=== PATIENT | male | born 1955 | race Caucasian/White ===

== ENCOUNTER 2017-12-05 06:12 | Emergency (ER) | payer BC ==
[~2017-12-05] VITALS: Ht 188 cm; Wt 75.0 kg
[2017-12-05 06:20] VITALS: TEMP 36.5; Ht 188 cm; Wt 75.0 kg
[2017-12-05] MEDS ORDERED: FAMOTIDINE 20 MG TAB PO STA (06:31)
[2017-12-05] MEDS ORDERED: SUCRALFATE 1 GM TAB PO STA (06:31)
[2017-12-05] MEDS ORDERED: GI COCKTAIL PO STA (06:31)
[2017-12-05] MEDS ORDERED: ALBUTEROL 0.083% NEBU SOLN 3 ML VIAL INH STA (06:33)
[2017-12-05] MEDS ORDERED: ALUMINUM/MAGNESIUM SUSP 30 ML UDC ONE (06:37)
[2017-12-05] MEDS ORDERED: LIDOCAINE HCL 2% VISC SOLN 20 ML UDC ONE (06:37)
[2017-12-05 06:41] LABS: BASO % 0.1 %; BASO ABS # 0.01 K/uL (0-0.2); EOS % 0.9 %; EOS ABS # 0.09 K/uL (0-0.5); HEMATOCRIT 43.4 % (42-52); HEMOGLOBIN 15.3 g/dL (14.0-18.0); IG# 0.02 K/uL (0.00-0.02); LYMPH % 10.3 %; LYMPH ABS # 1.09 K/uL (1.2-3.4); MEAN CELL VOLUME 86.8 fL (80-100); MEAN CORPUSCULAR HEMOGLOBIN 30.6 pg (25-34); MEAN CORPUSCULAR HGB CONC 35.3 g/dl (32-36); MEAN PLATELET VOLUME 9.2 fL (7.4-10.4); MONO % 6.4 %; MONO ABS # 0.67 K/uL (0.11-0.59); NEUT % 82.1 %; NEUT ABS # 8.66 K/uL (1.4-6.5); PLATELET COUNT 228 K/uL (130-400); RED CELL DISTRIBUTION WIDTH CV 13.5 % (11.5-14.5); RED CELL DISTRIBUTION WIDTH SD 42.6 fL (36.4-46.3); WHITE BLOOD COUNT 10.54 K/uL (4.8-10.8)
[2017-12-05 06:43] VITALS: O2SAT 99
[2017-12-05] MEDS ORDERED: EZET10TA63 PO (06:43)
--- NOTE | 2017-12-05 06:44 | DIAGNOSTIC IMAGING REPORT ---
CHEST ONE VIEW PORTABLE CLINICAL HISTORY: Atypical chest pain COMPARISON STUDY: No previous studies for comparison. FINDINGS: The cardiac and mediastinal contours are normal. There is no failure. There is no focal pulmonary consolidation. There is blunting of the left lateral costophrenic angle. Linear opacities at the left lung base likely represent scar/atelectasis.[ IMPRESSION: 1. Minor left basilar atelectasis/scarring 2. Age-indeterminate blunting of the left lateral costophrenic angle 3. No evidence of focal pulmonary consolidation Electronically signed by: Keshawn Babcock M.D. 12/05/2017 6:43 AM Dictated Date/Time: 12/05/2017 6:42 AM
[2017-12-05 06:54] LABS: ALBUMIN 3.7 gm/dl (3.4-5.0); ALKALINE PHOSPHATASE 71 U/L (45-117); ALT/SGPT 22 U/L (12-78); AST/SGOT 18 U/L (15-37); BLOOD UREA NITROGEN 14 mg/dl (7-18); CALCIUM 8.7 mg/dl (8.5-10.1); CARBON DIOXIDE 24 mmol/L (21-32); CKMB 2.6 ng/ml (0.5-3.6); CREATININE 0.94 mg/dl (0.60-1.40); GLUCOSE 96 mg/dl (70-99); LIPASE 168 U/L (73-393); SODIUM 140 mmol/L (136-145); TOTAL PROTEIN 7.1 gm/dl (6.4-8.2)
--- NOTE | 2017-12-05 07:01 | EMERGENCY ROOM VISIT NOTE ---
History First contact with patient: 06:19 Chief Complaint: CARDIAC ASSESSMENT Stated Complaint: TIGHTNESS IN CHEST, SHORTNESS OF BREATH Nursing Triage Summary: patient c/o chest tightness to center of chest along with SOB since 299. History of Present Illness This is a 62-year-old male who presents the emergency department complaining of chest pain. The patient reports he has been having chest pain the last 2 nights that starts at 3 in the morning. He reports he ate dinner very late last evening because he was playing golf so late. He reports getting home at 9 PM and going to bed around 11 PM. The patient reports he smokes a pack per day. He is supposed to leave on vacation today to go to [place] with his . He reports he is previously had a stress test though it was a long while ago. He has never had a test called cardiac catheterization before. The patient reports his father had triple bypass disease in his 70s. The patient reports the chest pain as a squeezing sensation. He reports it is mostly gone at this point. Patient reports feeling anxious when he gets the pain and he has to stand up and walk around. He reports feeling short of breath when he lays back. Review of Systems See HPI for pertinent positives & negatives. A total of 10 systems reviewed and were otherwise negative. Social History Smoking Status: Current Every Day Smoker Alcohol Use: occasionally Drug Use: none Marital Status: Housing Status: lives with family Occupation Status: employed Current/Historical Medications Scheduled Ezetimibe (Zetia), 10 MG PO DAILY Famotidine (Pepcid), 40 MG PO HS Nicotine (Nicotine), 1 PATCH TOP DAILY Physical Exam Vital Signs Date Time Temp Pulse Resp B/P (MAP) Pulse Ox O2 Delivery O2 Flow Rate FiO2 12/05/17 12:06 59 16 119/84 97 12/05/17 10:57 58 16 145/90 97 Room Air 12/05/17 09:14 55 16 140/75 97 Room Air 12/05/17 07:57 56 16 134/76 95 Room Air 12/05/17 07:25 56 16 121/80 96 Room Air 12/05/17 06:44 52 12/05/17 06:43 99 Room Air 12/05/17 06:23 96 Room Air 12/05/17 06:20 36.5 58 20 147/92 97 Room Air 12/05/17 06:20 96 Room Air Physical Exam GENERAL: Awake, alert, well-appearing, in no acute distress HENT: Normocephalic, atraumatic. Oropharynx unremarkable. EYES: Normal conjunctiva. Sclera non-icteric. NECK: Supple. No nuchal rigidity. FROM. No JVD. RESPIRATORY: Wheezing bilaterally CARDIAC: Regular rate, normal rhythm. Extremities warm and well perfused. Pulses equal. ABDOMEN: Soft, non-distended. No tenderness to palpation. No rebound or guarding. No masses. RECTAL: Deferred. MUSCULOSKELETAL: Chest examination reveals no tenderness. The back is symmetrical on inspection without obvious abnormality. There is no CVA tenderness to palpation. No joint edema. LOWER EXTREMITIES: Calves are equal size bilaterally and non-tender. No edema. No discoloration. NEURO: Normal sensorium. No sensory or motor deficits noted. SKIN: No rash or jaundice noted. Medical Decision & Procedures ER Provider Diagnostic Interpretation: CHEST ONE VIEW PORTABLE CLINICAL HISTORY: Atypical chest pain COMPARISON STUDY: No previous studies for comparison. FINDINGS: The cardiac and mediastinal contours are normal. There is no failure. There is no focal pulmonary consolidation. There is blunting of the left lateral costophrenic angle. Linear opacities at the left lung base likely represent scar/atelectasis.[ IMPRESSION: 1. Minor left basilar atelectasis/scarring 2. Age-indeterminate blunting of the left lateral costophrenic angle 3. No evidence of focal pulmonary consolidation Electronically signed by: Keshawn Babcock M.D. 12/05/2017 6:43 AM Laboratory Results 12/05/17 06:20 Red Blood Count 5.00, Mean Corpuscular Volume 86.8, Mean Corpuscular Hemoglobin 30.6, Mean Corpuscular Hemoglobin Concent 35.3, Mean Platelet Volume 9.2, Neutrophils (%) (Auto) 82.1, Lymphocytes (%) (Auto) 10.3, Monocytes (%) (Auto) 6.4, Eosinophils (%) (Auto) 0.9, Basophils (%) (Auto) 0.1, Neutrophils # (Auto) 8.66, Lymphocytes # (Auto) 1.09, Monocytes # (Auto) 0.67, Eosinophils # (Auto) 0.09, Basophils # (Auto) 0.01 12/05/17 06:20 Test 12/05/17 06:20 12/05/17 07:45 White Blood Count 10.54 K/uL (4.8-10.8) Red Blood Count 5.00 M/uL (4.7-6.1) Hemoglobin 15.3 g/dL (14.0-18.0) Hematocrit 43.4 % (42-52) Mean Corpuscular Volume 86.8 fL (80-100) Mean Corpuscular Hemoglobin 30.6 pg (25-34) Mean Corpuscular Hemoglobin Concent 35.3 g/dl (32-36) Platelet Count 228 K/uL (130-400) Mean Platelet Volume 9.2 fL (7.4-10.4) Neutrophils (%) (Auto) 82.1 % Lymphocytes (%) (Auto) 10.3 % Monocytes (%) (Auto) 6.4 % Eosinophils (%) (Auto) 0.9 % Basophils (%) (Auto) 0.1 % Neutrophils # (Auto) 8.66 K/uL (1.4-6.5) Lymphocytes # (Auto) 1.09 K/uL (1.2-3.4) Monocytes # (Auto) 0.67 K/uL (0.11-0.59) Eosinophils # (Auto) 0.09 K/uL (0-0.5) Basophils # (Auto) 0.01 K/uL (0-0.2) RDW Standard Deviation 42.6 fL (36.4-46.3) RDW Coefficient of Variation 13.5 % (11.5-14.5) Immature Granulocyte % (Auto) 0.2 % Immature Granulocyte # (Auto) 0.02 K/uL (0.00-0.02) D-Dimer 250 ug/L FEU (0-500) Anion Gap 10.0 mmol/L (3-11) Est Creatinine Clear Calc Drug Dose 85.3 ml/min Estimated GFR () 99.6 Estimated GFR (Non- 85.9 BUN/Creatinine Ratio 15.1 (10-20) Calcium Level 8.7 mg/dl (8.5-10.1) Total Bilirubin 0.4 mg/dl (0.2-1) Direct Bilirubin 0.1 mg/dl (0-0.2) Aspartate Amino Transf (AST/SGOT) 18 U/L (15-37) Alanine Aminotransferase (ALT/SGPT) 22 U/L (12-78) Alkaline Phosphatase 71 U/L (45-117) Total Creatine Kinase 135 U/L (39-308) Creatine Kinase MB 2.6 ng/ml (0.5-3.6) Creatine Kinase MB Ratio 1.9 (0-3.0) Total Protein 7.1 gm/dl (6.4-8.2) Albumin 3.7 gm/dl (3.4-5.0) Lipase 168 U/L (73-393) Troponin I < 0.015 ng/ml (0-0.045) Medications Administered Medications (Trade) Dose Ordered Sig/Victorina Route Start Time Stop Time Status Last Admin Dose Admin Miscellaneous Medication (Gi Cocktail) 24 ml NOW STAT PO 12/05/17 06:31 12/05/17 06:34 DC 12/05/17 06:42 24 ML Famotidine (Pepcid Tab) 20 mg NOW STAT PO 12/05/17 06:31 12/05/17 06:34 DC 12/05/17 06:39 20 MG Sucralfate (Carafate Tab) 1 gm NOW STAT PO 12/05/17 06:31 12/05/17 06:34 DC 12/05/17 06:39 1 GM Albuterol Sulfate (Ventolin 0.083% 2.5MG/3ML Neb) 2.5 mg NOW STAT INH 12/05/17 06:33 12/05/17 06:35 DC 12/05/17 06:40 2.5 MG Albuterol (Ventolin Hfa Inhaler) 2 puffs NOW STAT INH 12/05/17 11:41 12/05/17 11:42 DC 12/05/17 11:41 2 PUFFS ECG Per My Interpretation Indication: chest pain Rate (beats per minute): 55 Rhythm: sinus bradycardia Findings: no acute ischemic change, no ectopy Change: Repeat EKG @ [address] elevation or depression, rate 58, unchanged from Previous. Medical Decision This is a 62-year-old male who presents emergency department complaining of chest pain that wakes him from sleep at 3 in the morning for the past several nights. Patient does smoke and does have a family history of cardiac issues. He was given a GI cocktail, Pepcid and Carafate here in the emergency department. He is wheezing on physical examination therefore he was given an albuterol breathing treatment. Serial troponins and serial EKGs were obtained in the emergency department. His troponin is essentially 0 and his EKG is unchanged. His d-dimer is also normal. Based on these findings along with the patient's complaint I did discuss the case with the on-call stretcher leveler operator helper who asked that we get a stress echo. The patient passed this and I feel the patient can be safely discharged home for follow-up with cardiology. I did recommend a clear liquid diet for the next 48 hours along with 5 mL's of Maalox and Pepcid. Patient and were in agreement with the treatment plan. Impression Primary Impression: Chest pain Departure Information Dispostion Home / Self-Care Condition GOOD Prescriptions Nicotine (NICOTINE) 14 Mg/24 Hr Dis 1 PATCH TOP DAILY for 28 Days, #28 PATCH Prov: Aquilino Estrada MD 12/05/17 Famotidine (Pepcid) 40 Mg Tab 40 MG PO HS for 30 Days, #30 TAB Prov: Aquilino Estrada MD 12/05/17 Referrals Vance Pham D.O. (PCP) Patient Instructions My [facility] Problem Qualifiers Primary Impression: Chest pain Chest pain type: unspecified Qualified Codes: R07.9 - Chest pain, unspecified
[2017-12-05] MEDS ORDERED: NICO14DI9 TOP (11:41)
[2017-12-05] MEDS ORDERED: FAMO40TA6 PO (11:41)
[2017-12-05] MEDS ORDERED: ALBUTEROL HFA 8 GM INHALER INH STA (11:41)
[2017-12-05 12:06] VITALS: BP 119/84; PULSE 59; O2SAT 97
[2017-12-05] MEDS ORDERED: OPTIRAY 320 IV PRN (12:15)
--- NOTE | 2017-12-05 12:15 | EXERCISE STRESS ECHO ---
*NOTICE TO RECEIVING REPUBLICAN AGENCY This information is strictly Confidential and protected under [place] law. [place] law prohibits you from making any further disclosure of this information unless further disclosure is expressly permitted by the written consent of the person to whom it pertains or is authorized by law. A general authorization for the release of medical or other information is not sufficient for this purpose. Hospital accepts no responsibility if the information is made available to any other person, INCLUDING THE PATIENT. Interpretation Summary * Name: PAXTON SIEGEL Study Date: 12/05/2017 09:21 AM BP: 138/79 mmHg * Patient Location: [facility] HR: 65 * : 1955 (M/d/yyyy) Gender: Male Height: 74 in * Age: 62 yrs Ethnicity: [place] Weight: 165 lb * Ordering Physician: Aquilino Estrada * Performed By: Crystal Franklin RDCS * * Reason For Study: CHEST PAIN * BSA: 2.0 m2 * -- Conclusions -- * 1. Negative exercise stress echo for ischemia at 89% MPHR. * 2. Negative stress ECG for ischemia. * 3. Average functional capacity. Exercised 7:51 min, acheiving 9.8 METS. No exercise induced chest pain. * 4. Normal resting LV size and function. EF 65-70%. Normal RV size and function. No significant valvular pathology. * 5. No prior studies for comparison. Procedure Details * TST, CPT #50332 * ECHO DOPPLER, CPT #[id number] * ECHO COLOR FLOW, CPT #85716 Left Ventricular Findings with Stress * This was essentially a normal study. Left Ventricle * The left ventricle is grossly normal size. * There is normal left ventricular wall thickness. * Ejection Fraction = 65-70%. * The left ventricular ejection fraction increases normally with stress. The left ventricular end-systolic cavity size reduces post-stress (normal response). The left ventricular wall motion with stress is normal. Right Ventricle * The right ventricle is grossly normal size. * The right ventricular systolic function is qualitatively normal. Atria * The left atrial size is normal. * Borderline right atrial enlargement. * No ASD detected; PFO is not assessed. Mitral Valve * The mitral valve leaflets appear thickened, but open well. * There is no mitral valve stenosis. * There is trace mitral regurgitation. Aortic Valve * The aortic valve opens well. * The aortic valve is trileaflet. * No hemodynamically significant valvular aortic stenosis. * There is no significant aortic regurgitation. Pulmonic Valve * The pulmonary valve is inadequately visualized, but the Doppler data is adequate for interpretation. * Trace pulmonic valvular regurgitation. Great Vessels * The aortic root and proximal ascending aorta are normal sized. Pericardium * There is no pericardial effusion. Stress Parameters * Normal baseline electrocardiogram. * Arrhythmia induced during stress: occasional PAC's. * Stress ECG: No ST changes. No arrhythmias. * Rest heart rate was '65' BPM. * Rest blood pressure was '138/79' * Maximum heart rate achieved was 141 bpm. * Maximum heart rate was 89 % of maximum age-predicted heart rate. * Maximum blood pressure was '222/105' * Total exercise time was '7:51' * Maximum exercise MET level achieved was '9.80' METS * Maximum treadmill speed was '3.40' miles per hour. * Maximum treadmill elevation was '14.00'% grade. * Exercise was terminated due to 'dyspnea' * The patient exhibited dyspnea during exercise. * Exercise was stopped due to dyspnea. Left Ventricular Findings with Stress * The study was technically good with many images being of high quality. MMode 2D Measurements and Calculations IVSd 1.1 cm IVSs 1.9 cm LVIDd 4.0 cm LVIDs 2.1 cm LVPWd 0.99 cm LVPWs 1.9 cm IVS/LVPW 1.1 FS 48.2 % EDV(Teich) 70.3 ml ESV(Teich) 14.0 ml EF(Teich) 80.1 % EDV(cubed) 64.4 ml ESV(cubed) 9.0 ml EF(cubed) 86.1 % % IVS thick 72.3 % % LVPW thick 93.9 % LV mass(C)d 135.0 grams LV mass(C)dI 67.4 grams/m\S\2 LV mass(C)s 162.2 grams LV mass(C)sI 81.0 grams/m\S\2 SV(Teich) 56.3 ml SI(Teich) 28.1 ml/m\S\2 SV(cubed) 55.4 ml SI(cubed) 27.7 ml/m\S\2 ACS 1.3 cm LA dimension 2.9 cm asc Aorta Diam 3.1 cm LVOT diam 1.8 cm LVOT area 2.6 cm\S\2 LVAd ap4 24.7 cm\S\2 LVLd ap4 7.4 cm EDV(MOD-sp4) 67.8 ml EDV(sp4-el) 70.5 ml LVAs ap4 10.2 cm\S\2 LVLs ap4 5.7 cm ESV(MOD-sp4) 15.1 ml ESV(sp4-el) 15.4 ml EF(MOD-sp4) 77.7 % EF(sp4-el) 78.1 % LVAd ap2 23.1 cm\S\2 LVLd ap2 7.0 cm EDV(MOD-sp2) 65.5 ml EDV(sp2-el) 65.3 ml LVAs ap2 10.2 cm\S\2 LVLs ap2 5.4 cm ESV(MOD-sp2) 16.6 ml ESV(sp2-el) 16.3 ml EF(MOD-sp2) 74.7 % EF(sp2-el) 75.1 % LVLd %diff -5.54 % EDV(MOD-bp) 66.5 ml LVLs %diff -5.68 % ESV(MOD-bp) 16.1 ml EF(MOD-bp) 75.8 % SV(MOD-sp4) 52.7 ml SI(MOD-sp4) 26.3 ml/m\S\2 SV(MOD-sp2) 48.9 ml SI(MOD-sp2) 24.4 ml/m\S\2 SV(MOD-bp) 50.4 ml SI(MOD-bp) 25.2 ml/m\S\2 SV(sp4-el) 55.1 ml SI(sp4-el) 27.5 ml/m\S\2 SV(sp2-el) 49.0 ml SI(sp2-el) 24.5 ml/m\S\2 Doppler Measurements and Calculations MV E max clare 73.9 cm/sec MV A max clare 53.9 cm/sec MV E/A 1.4 MV dec time 0.25 sec Ao V2 max 114.7 cm/sec Ao max PG 5.3 mmHg Ao max PG (full) 2.3 mmHg RAYMOND(V,A) 1.9 cm\S\2 RAYMOND(V,D) 1.9 cm\S\2 LV V1 max PG 3.0 mmHg LV V1 max 86.3 cm/sec PA V2 max 75.0 cm/sec PA max PG 2.2 mmHg PI end-d clare 108.7 cm/sec
== END 2017-12-05 12:08 | disposition home or self-care (01) ==
LOC: C.EDB 06:14 → C.EDA 12:08
DX: R07.9 Chest pain, unspecified (principal); R06.2 Wheezing; F17.200 Nicotine dependence, unspecified, uncomplicated; Z82.49 Family history of ischemic heart disease and other diseases of the circulatory system